=== PATIENT | female | born 1950 | race African-American/Black ===

== ENCOUNTER 2016-12-04 21:37 | Emergency (ER) | payer OTHER ==
[~2016-12-04] VITALS: Ht 167.6 cm; Wt 86.2 kg
--- NOTE | ~2016-12-04 | EKG ---
[address] [place] [address] ELECTROCARDIOGRAM REPORT Name: CATY BOWMAN [id number] Admission: 12/04/16 Attend Phys: Discharge: 12/05/16 Date of : 50 Report #: [id number] THIS REPORT FOR: //name// [facility] ED Test Date: 2016-12-04 Test Time: 23:07:19 Pat Name: CATY BOWMAN Department: Room: Gender: F Painting Supervisor: CHACHA : 1950 Requested By: Roxanne Vega Order Number: [id number] MD: James Guadarrama Measurements Intervals [place] Rate: 81 P: 33 MS: 150 QRS: 43 QRSD: 78 T: 45 QT: 388 QTc: 451 Interpretive Statements Sinus rhythm Probable anteroseptal infarct, old No previous ECG available for comparison Electronically Signed On 12-05-2016 16:22:11 CDT by James Guadarrama [email or web address] <ELECTRONICALLY SIGNED> By: James Guadarrama MD 12/05/16 1622 [id number] James Guadarrama MD /SWETA
[~2016-12-04 21:37] MED LIST: HYDROCHLOROTHIA25 M2 PO; LISINOPRIL5 MG PO; LIVALO4 MG PO; PREDNISONE 20 M20 M1 PO
[2016-12-04] MEDS ORDERED: MAXZIDE 75-501 EACH PO (23:01)
[2016-12-04] MEDS ORDERED: TRIAMTERENE PO (23:02)
[2016-12-04 23:17] LABS: BASOPHILS 0.4 % (0.0-2.0); EOSINOPHILS 1.8 % (0.0-3.0); HEMATOCRIT 42.1 % (37.0-47.0); HEMOGLOBIN 14.3 gm/dL (12.0-15.0); LYMPHOCYTES 16.9 % (24.0-44.0); MCH 29.2 pg (26.0-34.0); MCHC 33.9 g/dL (28.0-37.0); MCV 86.2 fL (80.0-100.0); MONOCYTES 7.7 % (1.0-8.0); PLATELET COUNT 356 thou/uL (150-400); POLYS 73.2 % (36.0-66.0); RBC 4.88 mil/uL (4.20-5.00); RDW 14.1 % (10.5-14.5); WBC 8.2 thou/uL (4.0-11.0)
[2016-12-04 23:22] LABS: ANION GAP 9 mmol/L (7-16); BUN 10 mg/dL (7-18); CALCIUM 9.3 mg/dL (8.5-10.1); CHLORIDE 99 mmol/L (98-107); CO2 31 mmol/L (21-32); CREATININE 1.1 mg/dL (0.6-1.0); GLUCOSE 114 mg/dL (74-106); POTASSIUM 3.2 mmol/L (3.5-5.1); SODIUM 139 mmol/L (136-145)
[2016-12-04 23:25] LABS: MANUAL DIFF NO
[2016-12-04 23:31] LABS: TROPONIN-I < 0.04 ng/mL (<0.04-0.07)
[2016-12-05 00:20] VITALS: BP 152/100
== END 2016-12-05 00:15 | disposition home or self-care (01) ==
LOC: ER 21:37
PROVIDERS: Emergency Medicine
DX: R55 Syncope and collapse (principal); E87.6 Hypokalemia; I10 Essential (primary) hypertension; E78.5 Hyperlipidemia, unspecified; F10.99 Alcohol use, unspecified with unspecified alcohol-induced disorder; Z91.030 Bee allergy status; Z91.018 Allergy to other foods; Z88.8 Allergy status to other drugs, medicaments and biological substances; Z91.038 Other insect allergy status

== ENCOUNTER 2016-12-13 15:35 | Emergency (ER) | payer OTHER ==
[~2016-12-13] VITALS: Ht 167.6 cm; Wt 80.3 kg
[2016-12-13 15:35] VITALS: BP 160/102
[~2016-12-13 15:35] MED LIST changes: +MAXZIDE 75-501 EACH PO; +TRIAMTERENE PO
[2016-12-13] MEDS ORDERED: PREDNISONE 20 M20 MG PO (15:52)
[2016-12-13] MEDS ORDERED: MAXZIDE-25 MG1 EACH PO (16:04)
== END 2016-12-13 16:30 | disposition home or self-care (01) ==
LOC: ER 15:35
DX: J30.9 Allergic rhinitis, unspecified (principal); T78.40XA Allergy, unspecified, initial encounter; X58.XXXA Exposure to other specified factors, initial encounter; I10 Essential (primary) hypertension; E78.5 Hyperlipidemia, unspecified; F10.99 Alcohol use, unspecified with unspecified alcohol-induced disorder; Z91.018 Allergy to other foods; Z91.030 Bee allergy status; Z88.8 Allergy status to other drugs, medicaments and biological substances

== ENCOUNTER 2018-04-06 02:07 | Emergency (ER) | payer OTHER ==
[~2018-04-06] VITALS: Ht 167.6 cm; Wt 81.7 kg
[~2018-04-06 02:07] MED LIST changes: +MAXZIDE-25 MG1 EACH PO; +PREDNISONE 20 M20 MG PO
[2018-04-06] MEDS ORDERED: PREDNISONE 20 M20 MG PO (04:38)
[2018-04-06 04:55] VITALS: BP 161/90
== END 2018-04-06 04:57 | disposition home or self-care (01) ==
LOC: ER 02:07
DX: T78.3XXA Angioneurotic edema, initial encounter (principal); I10 Essential (primary) hypertension; E78.5 Hyperlipidemia, unspecified; Z91.030 Bee allergy status; Z91.018 Allergy to other foods; Z88.8 Allergy status to other drugs, medicaments and biological substances

== ENCOUNTER 2018-11-24 05:40 | Day surgery (SDC) | payer OTHER ==
[~2018-11-24] VITALS: Ht 167.6 cm; Wt 80.7 kg
--- NOTE | ~2018-11-24 | O ---
[facility] [place] [address] OPERATIVE REPORT Name: CATY BOWMAN Room #: 150-8 [facility] M.R.#: [id number] Admission: 11/24/18 ������������������ Attend Phys: Stewart Jovel MD Discharge: ������������������ Date of : 50 Report #: [id number] THIS REPORT FOR: //name// CC: Alexi Jovel DATE OF SERVICE: 11/24/[address] Stewart Jovel and Dr. Alexi Yañez at [facility]. PREOPERATIVE DIAGNOSIS: An 11 x 9 cm subcutaneous and subfascial soft tissue tumor of the back. POSTOPERATIVE DIAGNOSIS: An 11 x 9 cm subcutaneous and subfascial soft tissue tumor of the back. PROCEDURE: Excision of an 11 x 9 cm soft tissue tumor of the subcutaneous tissue and subfascial of the back with complex layered closure. SURGEON: Stewart Jovel MD. ANESTHESIA: Local. DESCRIPTION OF PROCEDURE: The patient was brought to the operating room and placed on operative table in the prone position. Skin and subcutaneous tissue were then prepped and draped and the skin was then prepped and draped in a sterile fashion. Skin and subcutaneous tissue were then infiltrated with 0.5% Marcaine and 1% Xylocaine in a 1:1 mixture. Transverse skin incision was performed over the mass using #10 scalpel blade. Hemostasis obtained using the electrocautery. Dissection was carried around this large soft tissue tumor extending through the fascia in parts mainly in the subcutaneous tissue using the Metzenbaum scissors and electrocautery. The subcutaneous and subfascial tumor was completely excised and sent to pathology. Meticulous hemostasis was checked and obtained in the area using the electrocautery. Deep and superficial subcutaneous tissue then reapproximated using simple interrupted 3-0 Vicryl sutures and the skin then closed with a running 4-0 subcuticular Vicryl stitch. Wound was then dressed with Mastisol, 1/2-inch Steri-Strips cut in half, Telfa, 4 x 4 gauze, sponge and tape. The patient was then taken to the recovery room awake, alert and in good condition. Estimated blood loss was approximately 5 mL [facility] [address] [place] [address] OPERATIVE REPORT Name: CATY BOWMAN Room #: 150-8 [facility].#: [id number] Admission: 11/24/18 ������������������ Attend Phys: Stewart Jovel MD Discharge: ������������������ Date of : 50 Report #: [id number] and the patient tolerated procedure well. All sponge, lap and instrument counts correct x 2. ��������������������������������������������� ���������������������������������������� By: ��������������������������������������������� 1507 [id number] Stewart Jovel MD /nt
[~2018-11-24 05:40] MED LIST changes: +ASPIR 8181 MG PO; +B COMPLEX1 EACH PO; +BENADRYL25 MG PO; +CALCIUM 500 +1 EAC5 PO; +CENTRUM SILVER1 EAC4 PO; +FISH OIL 1,001000 M2 PO; +VITAMINC500 PO
[2018-11-24 12:31] VITALS: BP 150/88
[2018-11-24] MEDS ORDERED: NORCO 5-325 TA1 EAC1 PO (13:53)
[2018-11-24 15:11] VITALS: BP 150/88
--- NOTE | 2018-11-25 17:06 | PATH ---
[facility] [address] [place] [address] PATHOLOGY RPT PROCEDURE Name: MANA BRAGG Room #: DEP [facility] M.R.#: [id number] ������������������ Admission: 11/24/18 ������������������ Date of : 50 Discharge: 11/24/18 Report #: [id number] Path Case #: [id number] [facility] Accession Number: [id number] . 01 Material submitted: . back - LEFT UPPER BACK MASS. Modifiers: left, upper . 01 Clinical history: . Soft tissue mass on back . 02 Diagnosis: Mature adipose tissue, left upper back mass, excision: - Compatible with a lipoma. 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 02 Electronically signed: . Nurys Luther MD, Pathologist NPI- [id number] . 01 Gross description: . The specimen is received in formalin, labeled "Mana Bragg, left upper back mass", is an irregular fragment of yellow lobulated adipose tissue covered by a thin pritchard-white membrane weighing 74 g and measuring 9.0 x 7.5 x 2.0 cm. The specimen is inked black, serially sectioned to show a olivera-yellow homogeneous cut surface with no discrete hemorrhage or necrosis. Diesel Inspector tissue is submitted in A1-A4. (SWS; 11/24/2018) SHS/SHS . 02 Pathologist provided ICD-10: D17.1 . 02 CPT . 196679 Specimen Comment: A courtesy copy of this report has been sent to Specimen Comment: [phone], . Specimen Comment: [id number] Specimen Comment: Report sent to / DR DICKENS Performed at: [address], [place] [id number] MD Byron Berry MD Phone: [phone] Performed at: [address] [id number] MD Nurys Luther MD Phone: [phone]
== END 2018-11-24 15:21 | disposition home or self-care (01) ==
LOC: TBA 05:40 → OR 05:40
DX: D17.1 Benign lipomatous neoplasm of skin and subcutaneous tissue of trunk (principal); I10 Essential (primary) hypertension; E78.5 Hyperlipidemia, unspecified; Z90.710 Acquired absence of both cervix and uterus; Z88.8 Allergy status to other drugs, medicaments and biological substances; Z79.899 Other long term (current) drug therapy; Z98.890 Other specified postprocedural states; Z79.82 Long term (current) use of aspirin
CPT/HCPCS: 50010; 50101; 50386; 50403; 56524; 56526

== ENCOUNTER 2020-08-03 09:02 | Emergency (ER) | payer OTHER ==
[~2020-08-03] VITALS: Ht 167.6 cm; Wt 77.1 kg
[~2020-08-03 09:02] MED LIST changes: +NORCO 5-325 TA1 EAC1 PO
[2020-08-03] MEDS ORDERED: LIVALO4 MG PO (10:31)
[2020-08-03 11:34] VITALS: BP 168/95
== END 2020-08-03 11:34 | disposition home or self-care (01) ==
LOC: ER 09:02
DX: S01.01XA Laceration without foreign body of scalp, initial encounter (principal); S39.012A Strain of muscle, fascia and tendon of lower back, initial encounter; S60.051A Contusion of right little finger without damage to nail, initial encounter; R22.9 Localized swelling, mass and lump, unspecified; I10 Essential (primary) hypertension; E78.5 Hyperlipidemia, unspecified; Z90.710 Acquired absence of both cervix and uterus; Z79.899 Other long term (current) drug therapy; Z88.8 Allergy status to other drugs, medicaments and biological substances; Z91.030 Bee allergy status; W01.0XXA Fall on same level from slipping, tripping and stumbling without subsequent striking against object, initial encounter; Y93.89 Activity, other specified; Y92.89 Other specified places as the place of occurrence of the external cause; Y99.8 Other external cause status